=== PATIENT | male | born 1955 | race Caucasian/White ===

== ENCOUNTER 2019-12-24 19:23 | Observation (INO) | payer OTHER, SELFPAY ==
[2019-12-24 19:23] VITALS: BP 185/97; PULSE 85; RESP 18; TEMP 36.6; O2SAT 97; BMI 31.8
--- NOTE | 2019-12-24 19:46 | EKG12_ITS ---
Test Reason : NEURO Blood Pressure : / mmHG Vent. Rate : 079 BPM Atrial Rate : 079 BPM P-R Int : 136 ms QRS Dur : 086 ms QT Int : 380 ms P-R-T Axes : 045 -23 019 degrees QTc Int : 435 ms Normal sinus rhythm Normal ECG Confirmed by JEANETTE STODDARD, NOE ([id number]), online editor MARQUIS PEREZ ([id number]) on 12/28/2019 2:21:44 PM Referred By: DUSTIN Confirmed By:HERLINDA REID MD
--- NOTE | 2019-12-24 19:49 | ED.DCSUM_ITS ---
History of Present Illness Chief Complaint: Neuro S/Sx Informant: Patient, Significant Other Onset: Hours - 1-2; last seen normal 1809 Context: - - unsure Quality and Location: - - confused. Negative for: Right Facial Droop, Left Facial Droop, Right Face Paresthesia, Left Face Parasthesia, Right Arm Parasthesia, Left Arm Parasthesia, Right Leg Parasthesia, Left Leg Parasthesia, Right Arm Weakness, Left Arm Weakness, Right Leg Weakness, Left Leg Weakness, Slurred Speech, Expressive Aphasia, Receptive Aphasia, Difficulty with Ambulation Current Severity: Gone Maximum Severity: Moderate Worsened by: nothing in particular Relieved by: nothing in particular Associated Symptoms: Negative for: Headache, Nausea, Vomiting, Chest Pain Narrative: Patient was on a treadmill and then afterwards went to get a shower, states he took an unusual amount of time because so she went to check on him and he was standing in the doorway after he got a shower, looking at his watch and disoriented and saying that he could not figure it out. Patient admits that he does have a new watch but states that something felt wrong. He had no trouble speaking or understanding others. Denies any lateralizing symptoms neurologically or headache or chest discomfort or any other physical symptoms. states other than what he was saying, she cannot tell physically that anything was wrong. Patient states he is amnestic to some events, and feels fine now. He is on Xarelto because of a history of a saddle pulmonary embolus that led to the diagnosis of protein C deficiency. No recent injury. - Past Medical History (1) Protein C deficiency Status: Chronic (2) Bilateral pulmonary embolism Status: Chronic Comment: on xarelto Past Medical History - Allergies and Home Meds Allergies/Adverse Reactions: Allergies No Known Allergies Allergy (Verified 12/24/19 19:26) Primary Care Physician: Jimmy Rocha MD [Primary Care Provider] - Lives: Spouse/ Significant Other Smoking Status: Never smoker - Family History Maternal Family History: Reports: Clotting Disorder Review of Systems General: Denies: Chills, Fever, Sweats Eyes: Denies: Visual changes - bilaterally, Diplopia ENT: Denies: Rhinorrhea, Sore throat Cardiovascular: Denies: Chest pain, Palpitations Respiratory: Denies: Dyspnea, Cough, Dyspnea on exertion Gastrointestinal: Denies: Abdominal pain, Nausea, Vomiting, Diarrhea, Melena, Hematochezia Genitourinary: Denies: Dysuria, Hematuria, Frequency Musculoskeletal: Denies: Back pain, Extremity Pain Skin: Denies: Rash, Wounds Neurological: Reports: - - confusion transiently. Denies: Headache, Weakness, Numbness STROKE Vital Signs/Narrative: Vital Signs Temp Pulse Resp BP Pulse Ox 12/24/19 19:23 97.9 F 85 18 185/97 H 97 Inital Vital Signs reviewed: Yes - NIHSS Initial 1a Level of Consciousness: 0 1b LOC Questions (Score 2 if aphasic/stupor): 0 1c LOC Commands (Only score 1st attempt): 0 2 Best Gaze (If aphasic, use reflexive mvmts.): 0 3 Visual: 0 4 Facial Palsy: 0 5 Motor Arm Right (UN = amputation/fusion): 0 5 Motor Arm Left: 0 6 Motor Leg Right: 0 6 Motor Leg Left: 0 7 Limb ataxia (Only + if out of proportion): 0 8 Sensory (Aphasia/stupor=0 or 1, coma=2): 0 9 Best Language: 0 10 Dysarthria (mute, coma=2, intubated=UN): 0 11 Extinction and Inattention (only scored if +): 0 Total Score: 0 General: Well nourished, Well developed Head: Normocephalic, Atraumatic Eyes: Perrl, EOMI ENT: Moist mucous membranes, No rhinorrhea Neck: Supple, Nontender, - - No carotid bruits Cardiovascular: Regular rate, Regular rhythm, No murmurs Respiratory: No distress, CTA bilaterally, Chest nontender Abdomen: Soft, Nontender, Nondistended, Normal bowel sounds Back: Nontender, Normal Inspection Extremities: Nontender, No edema Skin: Normal color, No rash Neurological: Alert, Oriented x3, Cranial nerves II-XII grossly intact, Normal Strength, Normal Sensation, Normal DTR, Normal Gait Psychological: Normal affect, Normal Mood Diagnostic/Tx/Re-eval Clinical Impression(s) from Imaging Studies Brain CT 12/24/19 19:49 IMPRESSION: No evidence of acute intracranial bleed, mass or ischemia. Electronically Signed: Fausto Davis DO at 20:41 EST , Service support , Head/Neck CTA 12/24/19 21:04 IMPRESSION: No evidence of significant steno-occlusive disease or aneurysm. Electronically Signed: Fausto DavisDO at 22:02 EST , Service support , Laboratory Results 12/24/19 12/24/19 12/24/19 19:37 19:37 20:02 WBC 6.5 RBC 5.18 Hgb 15.3 Hct 45.6 MCV 88.0 MCH 29.5 MCHC 33.6 RDW Std Deviation 40.7 RDW Coeff of Paulina 12.6 Plt Count 177 MPV 10.0 Immature Gran % (Auto) 0.300 Neut % (Auto) 59.5 Lymph % (Auto) 28.2 [place] % (Auto) 10.5 H Eos % (Auto) 0.9 Baso % (Auto) 0.6 Absolute Neuts (auto) 3.9 Absolute Lymphs (auto) 1.83 Nucleated RBC % 0 Sodium 141 Potassium 3.8 Chloride 107 Carbon Dioxide 31.0 Anion Gap 3 L BUN 20 H Creatinine 1.04 Estim Creat Clear Calc 60.88 Est GFR (MDRD) Af Amer 93 Est GFR (MDRD) Non-Af 77 BUN/Creatinine Ratio 19.2 Glucose 103 Calcium 8.8 Troponin I < 0.015 Urine Color Straw Urine Clarity Clear Urine pH 6.5 Ur Specific [place] 1.010 Urine Protein Negative Urine Glucose (UA) Normal Urine Ketones Negative Urine Occult Blood Negative Urine Nitrite Negative Urine Bilirubin Negative Urine Urobilinogen Normal Ur Leukocyte Esterase Negative Urine RBC 0 SEEN Urine WBC 0-5 SEEN Ur Squamous Epith Cells 0 SEEN Urine Bacteria 0 SEEN Urine Mucus 0 SEEN - Rhythm Strip Rhythm Strip: Sinus Rhythm Rate: 79 Ectopy: None - EKG Initial EKG Interpretation: Sinus Rhythm, No Acute Injury Pattern - Normal EKG - Medical Decision Making Stroke Team Activated: No - NIHSS 0, asymptomatic Was Patient considered for Endovascular Intervention?: No - Negative CTA The possibility of a TIA was entertained, however I think that is much less likely since patient had no lateralizing symptoms. I discussed with neurology at 2330, when [facility] neurology consulted on the patient. Also discussed with the physician afterwards. His work-up was negative. His blood pressure continues to remain elevated although it has waxed and waned, anywhere from 139 systolic to 185. Neurology recommends admission with EEG and MRI with and without contrast, including MRV and hemosiderin windows if available. Patient is clinically and hemodynamically stable, will admit to PCU. Discussed with hospitalist. ED Disposition - Plan for ED Patient: Disposition: Acute Care Hospital [facility] Diagnosis: Transient confusion Referrals: Jimmy Rocha MD [Primary Care Provider] -
--- NOTE | 2019-12-24 19:49 | CT_ITS ---
STUDY: CT BRAIN WITHOUT CONTRAST REASON FOR EXAM: Male, 64 years old. CONFUSION TONIGHT WHILE GETTING READY FOR BED, HX PE IN PAST RADIATION DOSAGE (If Supplied By Facility): CTDIvol = ( 44.99 ) mGy, DLP = ( 846.73 ) mGycm TECHNIQUE: Transaxial CT imaging of the brain was performed without administration of intravenous contrast material. Individualized dose optimization techniques were used for this CT. COMPARISON: No relevant priors. FINDINGS: Normal soft tissue structures. Normal calvarium. Normal size ventricles and extra-axial spaces for the patient''s age. Normal white matter tracts of the cerebral hemispheres. Normal basal ganglia and thalami. Normal brainstem. Normal cerebellum. There is no intracranial hemorrhage. There are no findings of an acute ischemic infarction. Normal visualized paranasal sinuses. CT/Brain/Head without Contrast IMPRESSION: No evidence of acute intracranial bleed, mass or ischemia. Electronically Signed: Fausto Davis DO at 20:41 EST , Service support ,
[2019-12-24 20:02] LABS: Absolute Lymphocyte Count 1.83 X10^3/uL (0.83-4.51); Absolute Neutrophil Count 3.9 X10^3/uL (2.0-7.7); Basophil# 0.04 X10^3/uL; Basophil% 0.6 % (0-1); Eosinophil# 0.06 X10^3/uL; Eosinophils% 0.9 % (0-5); Hematocrit 45.6 % (40-54); Hemoglobin 15.3 g/dL (13.0-16.5); Lymphocyte # 1.83 X10^3/ul (4.0); Lymphocyte % 28.2 % (19-41); Mean Corp Hgb Conc 33.6 g/dL (32-36); Mean Corpuscular Hgb 29.5 pg (27.0-32.0); Monocyte# 0.68 X10^3/uL; Monocyte% 10.5 % (0-10); NRBC Flagged by Analyzer 0 % (0-5); Neutrophil # 3.85 X10^3/uL (2.7-7.7); Neutrophil % 59.5 % (47-70); Platelet Count 177 K/mm3 (150-450); RBC Distribution Width CV 12.6 % (11.6-14.6); RBC Distribution Width SD 40.7 fl (35.1-43.9); Red Blood Count 5.18 M/mm3 (4.6-6.2); White Blood Count 6.5 K/mm3 (4.4-11.0)
[2019-12-24 20:05] VITALS: BP 147/93; PULSE 80; RESP 22; O2SAT 95
[2019-12-24 20:06] VITALS: BMI 31.8
[2019-12-24 20:11] LABS: Bacteria 0 SEEN /hpf (None Seen); Mucous, Urine 0 SEEN /hpf (<or=2+); Red Blood Cells-Urine 0 SEEN /hpf (0-5); Squamous Epithelial Cells - UA 0 SEEN /hpf (0-5)
[2019-12-24 20:23] LABS: Color, Urine Straw (Yellow); Glucose, Dipstick Normal (Normal); Ketone-Dipstick Negative (Negative); Leukocyte Esterase-Dipstick Negative /ul (Negative); Nitrite-Dipstick Negative (Negative); Occult Blood-Urine Negative /ul (Negative); Protein-Dipstick Negative (Negative); Urine Bilirubin Dipstick Negative (Negative); Urine Clarity Clear (Clear); Urine Urobilinogen Normal (Normal); Urine pH 6.5 (5.0 - 8.0)
[2019-12-24 20:30] LABS: Anion Gap 3 (5-15); BUN 20 mg/dL (7-18); BUN/Creat Ratio 19.2 RATIO (10-20); Calcium,Total 8.8 mg/dL (8.5-10.1); Chloride 107 mmol/L (98-107); Creatinine, Serum 1.04 mg/dL (0.70-1.30); EST Glomerular Filtration Rate 77 mL/min (>60); Est Glom Filt Rate - Afr Amer 93 mL/min (>60); Estimated Creatinine Clearance 60.88 ml/min; Glucose 103 mg/dL (74-106); Potassium 3.8 mmol/L (3.5-5.1); Sodium Level 141 mmol/L (136-145)
[2019-12-24 20:51] LABS: White Blood Cells 0-5 SEEN /hpf (0-5)
[2019-12-24 21:00] VITALS: BP 154/96; PULSE 82; RESP 18; O2SAT 96
--- NOTE | 2019-12-24 21:04 | CT_ITS ---
STUDY: CTA HEAD AND NECK WITH CONTRAST REASON FOR EXAM: Male, 64 years old. CONFUSION WHILE GETTING READY FOR BED, CONCERN FOR TIA, HX PULMONARY EMBOLISM WITH CURRENT BLOOD THINNER USAGE RADIATION DOSAGE (If Supplied By Facility): CTDIvol = ( 19.39 ) mGy, DLP = ( 709.16 ) mGycm TECHNIQUE: CT angiography was performed with a multi-detector CT scanner. Data acquisition was obtained from the skull base through the vertex following intravenous administration of 100 ML ISOVUE 370. MIP images were reconstructed from the axial data set. Post-processing of the angiographic images was performed, with multiplanar reformation and 3D reconstruction. Individualized dose optimization techniques were used for this CT. COMPARISON: No relevant priors. FINDINGS: Normal bilateral petrous carotid arteries. Normal right cavernous carotid artery with a normal supraclinoid bifurcation. Normal left cavernous carotid artery with a normal supraclinoid bifurcation. There is hypoplastic development of the right A1 segment of the anterior cerebral arteries with an atretic but intact artery. Normal left A1 segments of the anterior cerebral artery. Normal intact anterior communicating artery (ACOM). Normal bilateral A2 segments of the anterior cerebral arteries. Normal right M1 and M2 segments of the middle cerebral arteries, with a normal M1 bifurcation. Normal left M1 and M2 segments of the middle cerebral arteries, with a normal M1 bifurcation. There is a persistent origin of the right posterior cerebral artery with absence of the posterior communicating artery (PCOM). There is a persistent origin of the left posterior cerebral artery with absence of the posterior communicating artery (PCOM). Normal bilateral vertebral arteries. Normal basilar artery with a normal basilar bifurcation. The visualized bilateral superior cerebellar (SCA) arteries are normal. Normal bilateral P1, P2 and visualized P3 segments of the posterior cerebral arteries. There is no demonstrated aneurysm of the [place]. There is no demonstrated abnormality of the visualized brain. AORTIC ARCH: Normal visualized aortic arch. Normal origins of the brachiocephalic, left common carotid, and left subclavian arteries. RIGHT CAROTID ARTERIES: Normal right common carotid artery (CCA). Normal right common carotid bulb. Normal origin of the right internal carotid (ICA) artery without a hemodynamically significant stenosis. Normal visualized cervical portion of the right internal carotid artery. Normal origin of the right external carotid artery (ECA). LEFT CAROTID ARTERIES: Normal left common carotid artery (CCA). Normal left common carotid bulb. Normal origin of the left internal carotid (ICA) artery without a hemodynamically significant stenosis. Normal visualized cervical portion of the left internal carotid artery. Normal origin of the left external carotid artery (ECA). VERTEBRAL ARTERIES: Normal bilateral vertebral arteries. CT/CTA Head AND Neck W/ Contrast IMPRESSION: No evidence of significant steno-occlusive disease or aneurysm. Electronically Signed: Fausto Davis DO at 22:02 EST , Service support ,
[2019-12-24 22:00] VITALS: BP 143/89; PULSE 74; RESP 15; O2SAT 95
[2019-12-24 23:00] VITALS: BP 141/85; PULSE 79; RESP 16; O2SAT 95
--- NOTE | 2019-12-24 23:54 | HP.PCM_ITS ---
Problem List (1) Protein C deficiency Status: Chronic (2) Transient confusion Status: Acute (3) Bilateral pulmonary embolism Status: Chronic Comment: on xarelto History of Present Illness Date of Admission: 12/24/19 Chief Complaint: confusion The patient is a 64 year old M with a significant history of restless leg syndrome; protein C deficiency with saddle embolus on Xarelto who presented to the emergency department with confusion. Patient and his returned from the gym. His took her shower first after which patient also went to take her shower. Patient took a long time before returning from the shower. And while holding his clothes after the shower he appeared confused and did not know how to operate his new apple watch. Patient then had his supper after which he helped his with the dishes. However patient forgot that he helped his with the dishes. At the emergency department patient confusion had resolved. A CT of his head and CTA of his head and neck was unremarkable. ED doctor discussed with [facility] neurologist who gave several recommendations. Past Medical History Past Medical History (Chronic Problems): Chronic Problems Protein C deficiency (Chronic) Bilateral pulmonary embolism (Chronic) on xarelto Allergies No Known Allergies Allergy (Verified 12/24/19 19:26) Home Medications: Ambulatory Orders Medication Instructions Recorded Ropinirole HCl [Requip] 0.5 mg PO QHS 05/20/14 Omeprazole [Prilosec] 20 mg PO DAILY 04/30/15 Rivaroxaban [Xarelto] 20 mg PO DAILY 04/30/15 Acetaminophen [Tylenol Extra 1,000 mg PO QHS 12/24/19 Strength] Ascorbic Acid [Vitamin C] 500 mg PO DAILY 12/24/19 Cholecalciferol (Vitamin D3) 2,000 unit PO DAILY 12/24/19 [Vitamin D3] Doxylamine Succinate [Sleep Aid] 12.5 mg PO QHS 12/24/19 Gluc Dietrich/Chondro Dietrich A/Vit C/Mn 1 ea PO DAILY 12/24/19 [Glucosamine Chondroitin Tab] Krill Oil 750 mg PO DAILY 12/24/19 L.acidoph,Paracasei, B.lactis 1 ea PO QHS 12/24/19 [Probiotic] Multivit-Mins/Iron/Folic/Lycop 1 ea PO DAILY 12/24/19 [Centrum Men's Tablet] Surgical History: no surgical history Lives: Spouse/ Significant Other Smoking Status: Never smoker - *Family History Maternal History Items: Clotting Disorder, - - Glaucoma Paternal History Items: Diabetes, Heart Disease - His father had a CABG Review of Systems Constitutional: Denies: Chills, Fever, Weight Change HEENT: Denies: Head Aches, Sinus Congestion, Sinus Drainage Cardiovascular: Denies: Chest Pain, Palpitations Respiratory: Denies: Cough, Shortness of breath at rest, Sputum production Gastrointestinal: Denies: Abdominal Pain, Nausea, Vomiting Genitourinary: Denies: Dysuria Musculoskeletal: Denies: Joint Pain, Joint Tenderness Skin: Denies: Rash, Wounds Neurological: Reports: Confusion. Denies: Focal weakness, Numbness, Tingling Psychiatric: Denies: Anxiety, Depression, Homicidal Ideations, Suicidal Ideations Hematologic/ Lymphatic: Denies: Easy Bruising, Easy Bleeding VTE Information - Inpt Only VTE Present on Admission: No VTE Mechan Device Prophylaxis: None VTE Pharm Prophylaxis ordered?: No Reason prophylaxis not ordered:: Treatment Not Indicated - Continue Xarelto for history of Saddle embolism Patient Problems: Active and Suspected Problems Transient confusion (Acute) - Physical Exam Vitals/I&O's: Vital Signs Temp Pulse Resp BP Pulse Ox 97.9 F 79 16 141/85 H 95 12/24/19 19:23 12/24/19 23:00 12/24/19 23:00 12/24/19 23:00 12/24/19 23:00 Oxygen Delivery Method Room Air Weight: 84.1 kg Body Mass Index (BMI) 31.8 General: Alert, Oriented x3, Cooperative HEENT: Atraumatic, PERRLA, EOMI, Normocephalic Neck: Supple, No JVD, Negative Carotid Bruits Lungs: Clear to auscultation, Normal air movement Cardiovascular: Regular rate, No murmurs Abdomen: Bowel Sounds Present, Soft, Non Tender Extremities: No edema, Capillary Refill Less than 3 Seconds Skin: No rashes, No breakdown Musculoskeletal: No Tenderness to Palpation of Joints or Extremities Neurological: Cranial nerves II-XII grossly intact, Deep Tendon Reflexes 2+/4 and Symmetrical, Motor Exam 5/5 strength throughout, Muscle tone normal, Sensory exam intact to light touch and pain, Coordination normal Psych/Mental Status: Normal Affect, Appropriate Laboratory Results 12/24/19 19:37: WBC 6.5, RBC 5.18, Hgb 15.3, Hct 45.6, MCV 88.0, MCH 29.5, MCHC 33.6, RDW Std Deviation 40.7, RDW Coeff of Paulina 12.6, Plt Count 177, MPV 10.0, Immature Gran % (Auto) 0.300, Neut % (Auto) 59.5, Lymph % (Auto) 28.2, [place] % (Auto) 10.5 H, Eos % (Auto) 0.9, Baso % (Auto) 0.6, Absolute Neuts (auto) 3.9, Absolute Lymphs (auto) 1.83, Nucleated RBC % 0 12/24/19 19:37: Sodium 141, Potassium 3.8, Chloride 107, Carbon Dioxide 31.0, Anion Gap 3 L, BUN 20 H, Creatinine 1.04, Estim Creat Clear Calc 60.88, Est GFR (MDRD) Af Amer 93, Est GFR (MDRD) Non-Af 77, BUN/Creatinine Ratio 19.2, Glucose 103, Calcium 8.8, Troponin I < 0.015 12/24/19 20:02: Urine Color Straw, Urine Clarity Clear, Urine pH 6.5, Ur Specific [place] 1.010, Urine Protein Negative, Urine Glucose (UA) Normal, Urine Ketones Negative, Urine Occult Blood Negative, Urine Nitrite Negative, Urine Bilirubin Negative, Urine Urobilinogen Normal, Ur Leukocyte Esterase Negative, Urine RBC 0 SEEN, Urine WBC 0-5 SEEN, Ur Squamous Epith Cells 0 SEEN, Urine Bacteria 0 SEEN, Urine Mucus 0 SEEN Current Medications Sodium Chloride 1,000 ml/ N/A 1,000 mls @ 84.1 mls/hr IV .[id number] [facility] Stop: 12/25/19 21:06 Last Admin: 12/24/19 21:36 Dose: 1 ml/kg/hr, 84.1 mls/hr Documented by: Assessment/Plan All Active Problems Transient confusion (Acute) The patient is a 64 year old M with a significant history of restless leg syndrome; protein C deficiency with saddle embolus on Xarelto who presented to the emergency department with confusion and amnesia consistent with acute encephalopathy. Acute encephalopathy NINDS NIH Scale was 0 CT of the head was unremarkable. CTA head and neck unremarkable. -Check Hba1c, Lipid level Physical therapy, occupational therapy and speech therapy to work with patient. N.p.o. until bedside swallow eval. Daily aspirin. High intensity statin ordered Permissive hypertension. Control blood pressure with labetalol for systolic blood pressure of more than 220 or diastolic blood pressure of more than 120. Per [facility] neurology recommendation MRI of the brain with and without gadolinium (with hemosiderin sequencing) and MRV in addition to EEG ordered. Echocardiogram ordered. History of saddle pulmonary embolism Reportedly patient has saddle pulmonary embolism after which follow-up work-up showed protein C deficiency. Xarelto continued. Elevated blood pressure diagnosis of hypertension Trend. Permissive hypertension as above. DVT prophylaxis Not indicated since patient is on Xarelto for history of PE. Code Visit OBSV E&M: 33911 Initial observation care L2
[2019-12-25] VITALS (11 sets, daily range): BP systolic 123–164; BP diastolic 69–89; PULSE 53–79; RESP 14–16; TEMP 36.7–36.9; O2SAT 92–98; BMI 31.2
--- NOTE | 2019-12-25 01:23 | ECHOCS_ITS ---
Reason For Study: TIA, CVA Procedure This was a 2D Doppler, Color Flow transthoracic echocardiogram. Contrast injection was performed. The study was technically difficult. Exam performed portable in patient room. Left Ventricle Normal LV size. The estimated ejection fraction is 65 %. No evidence for diastolic dysfunction. No regional wall motion abnormalities noted. Right Ventricle Normal RV size. Normal systolic function. Atria The left atrium is mildly enlarged. Normal right atrium. No doppler evidence for ASD. Mitral Valve There is no mitral valve stenosis. No mitral valve insufficiency. Tricuspid Valve There is no tricuspid stenosis. Trivial tricuspid valve insufficiency. Unable to estimate RV systolic pressure due to insufficient tricuspid regurgitant envelope. Aortic Valve Trisinus/trileaflet aortic valve. There is no aortic stenosis. No aortic valve insufficiency. Pulmonic Valve There is no pulmonic valvular stenosis. No pulmonic valve insufficiency. Great Vessels Normal aortic root. Pericardium/Pleural No pericardial effusion. Medication Diluted definity 3.0ml given slow IV push to enhance endocardial definition. Performed a rapid injection of agitated mix of 9 cc saline and 1cc air to assess for atrial septal defect. MMode/2D Measurements & Calculations LVIDd: 5.3 cm IVSd: 1.3 cm Ao root diam: 3.4 cm LVIDs: 3.3 cm LVPWd: 1.3 cm RVDd: 3.6 cm FS: 39.0 % LAV(MOD-bp): 54.8 ml LA A4 area: 18.6 cm2 LA dimension(2D): 3.9 cm LAV(MOD-bp) Indexed: 29.2 ml/m2 LAV(MOD-sp2): 56.8 ml LAV(MOD-sp4): 48.3 ml RA A4 area: 12.4 cm2 Time Measurements MV dec time: 0.20 sec Doppler Measurements & Calculations MV E max rocky: 70.6 cm/sec Lat Peak E' Rocky: 7.9 cm/sec Med Peak E' Rocky: 5.7 cm/sec MV A max rocky: 64.8 cm/sec E/E' lat: 8.9 E/E' med: 12.3 MV E/A: 1.1 Ao V2 max: 124.8 cm/sec LV V1 max: 125.2 cm/sec Ao max P.2 mmHg LV V1 max P.3 mmHg Interpretation Summary The study was technically difficult. Contrast injection was performed. The estimated ejection fraction is 65 %. No evidence for diastolic dysfunction. The left atrium is mildly enlarged. Trivial tricuspid valve insufficiency. The study was technically difficult. Contrast injection was performed. Ordering Physician: Pa Masters Referring Physician: Jimmy Rocha M.D. Performed By: Marina Garcia, JAYNE, RVT
--- NOTE | 2019-12-25 01:23 | MRI_ITS ---
STUDY: MRI BRAIN WITH AND WITHOUT CONTRAST REASON FOR EXAM: Male, 64 years old. CVA. Episode of AMS. Currently being treated for a PE. TECHNIQUE: Standardized multiplanar fat and water weighted pulse sequences were obtained. 15ml DOtarem IV was administered for the contrast portion of the examination. COMPARISON: CT 12/24/2019 FINDINGS: Normal size of the ventricles and extra-axial spaces for the patient''s age. Normal white matter tracts of the supratentorial brain. There is no evidence for recent intracranial ischemia or other cause of cytotoxic edema on diffusion weighted imaging (DWI). Normal T2* images of the brain without demonstrated susceptibility artifact. There is no demonstrated hemosiderin stain. Normal bilateral basal ganglia. Normal thalami. There is no extra-axial fluid accumulation. Normal flow voids within the major intracranial circulation suggesting patency by spin echo criteria. Normal venous enhancement. There is no enhancing intra-axial or extra-axial abnormality. Normal sella turcica, pituitary gland, infundibular stalk, optic chiasm and hypothalamus. Normal tectal plate and pineal gland. Normal midbrain, francoise and medulla. Normal cerebellum. Normal basal cisterns. Normal bilateral temporal bones. Normal bilateral internal auditory canals. No demonstrated orbital abnormality, within the constraints of a routine brain study. Normal visualized paranasal sinuses. Normal calvarium and skull base. Normal visualized soft tissue structures. Normal visualized upper cervical spine. MRI/Brain W/WO Contrast IMPRESSION: Normal unenhanced and enhanced MRI of the brain. Electronically Signed: Cordell Cronin MD at 15:41 EST Tel , Service support ,
--- NOTE | 2019-12-25 01:23 | MRI_ITS ---
STUDY: EXAMINATION - MRV BRAIN WITHOUT CONTRAST REASON FOR EXAM: Male, 64 years old. CVA. Episode of AMS. Currently being treated for a PE. TECHNIQUE: 3D [id number] (TOF) imaging was performed in a 1.5 hellen MRI scanner. COMPARISON: None. FINDINGS: Normal flow within the superior sagittal sinus. Normal flow within the superficial cortical veins. Normal flow within the paired internal cerebral veins, vein of Roger and straight sinus. Normal flow within the bilateral transverse and sigmoid sinuses. Normal flow within the bilateral jugular bulbs. MRI/MRV Head Without Contrast IMPRESSION: Normal unenhanced MRV of the brain. Electronically Signed: Cordell Cronin MD at 15:43 EST Tel , Service support ,
[2019-12-25 05:26] LABS: Absolute Lymphocyte Count 1.55 X10^3/uL (0.83-4.51); Absolute Neutrophil Count 4.3 X10^3/uL (2.0-7.7); Basophil# 0.04 X10^3/uL; Basophil% 0.6 % (0-1); Eosinophil# 0.03 X10^3/uL; Eosinophils% 0.4 % (0-5); Hematocrit 43.2 % (40-54); Hemoglobin 14.6 g/dL (13.0-16.5); Lymphocyte # 1.55 X10^3/ul (4.0); Mean Corp Hgb Conc 33.8 g/dL (32-36); Mean Corpuscular Hgb 29.6 pg (27.0-32.0); Mean Corpuscular Volume 87.4 fL (80-94); Mean Platelet Vol. 10.3 fl (6.2-12.0); Monocyte# 0.82 X10^3/uL; Monocyte% 12.1 % (0-10); NRBC Flagged by Analyzer 0 % (0-5); Neutrophil # 4.29 X10^3/uL (2.7-7.7); Neutrophil % 63.6 % (47-70); Platelet Count 173 K/mm3 (150-450); RBC Distribution Width CV 12.8 % (11.6-14.6); RBC Distribution Width SD 40.6 fl (35.1-43.9); Red Blood Count 4.94 M/mm3 (4.6-6.2); White Blood Count 6.8 K/mm3 (4.4-11.0)
[2019-12-25 05:49] LABS: Anion Gap 6 (5-15); BUN 16 mg/dL (7-18); BUN/Creat Ratio 19.5 RATIO (10-20); Calcium,Total 8.5 mg/dL (8.5-10.1); Chloride 109 mmol/L (98-107); Cholesterol 179 mg/dL (200); Creatinine, Serum 0.82 mg/dL (0.70-1.30); EST Glomerular Filtration Rate 101 mL/min (>60); Est Glom Filt Rate - Afr Amer 122 mL/min (>60); Estimated Creatinine Clearance 77.21 ml/min; Glucose 95 mg/dL (74-106); High Density Lipoprotein 43 mg/dL; Potassium 3.7 mmol/L (3.5-5.1); Sodium Level 142 mmol/L (136-145); Triglycerides 128 mg/dL; Very Low Density Lipoprotein 26 mg/dL (5-40)
[2019-12-25 08:27] LABS: Hemoglobin A1c 5.6 % (4.2-6.3)
--- NOTE | 2019-12-25 08:58 | NURSING ---
VSA and NIHSS late d/t patient receiving echocardiogram.
[2019-12-25] MEDS: Pantoprazole Sodium 20 MG Tablet PO (10:23)
[2019-12-25] MEDS: Aspirin 81 MG TAB.CHEW PO (10:23)
[2019-12-25] MEDS: Rivaroxaban 20 MG Tablet PO (10:54)
--- NOTE | 2019-12-25 12:59 | PN_ITS ---
Patient Problems: Active and Suspected Problems Transient confusion (Acute) Reason for Visit: confusion Subjective: No new issues. No further confusion. Vitals/I&O's: Vital Signs Temp Pulse Resp BP Pulse Ox 36.9 C 71 16 159/88 H 94 12/25/19 10:05 12/25/19 11:06 12/25/19 10:05 12/25/19 10:05 12/25/19 10:05 Oxygen Delivery Method Room Air Weight: 82.5 kg Body Mass Index (BMI) 31.2 Intake and Output for Last 24 Hours 12/23/19 12/24/19 12/25/19 23:59 23:59 23:59 Intake Total 1599 / 1599 Balance 1599 / 1599 General: Alert, No apparent distress HEENT: Atraumatic, Normocephalic Oral: Moist Mucosa, No Gingival or Mucosal Lesions/ Ulcerations Neck: No Nodes, Trachea Midline Lungs: Clear to auscultation, Normal air movement, No rhonchi, No wheeze, No rales Cardiovascular: Regular rate, Regular Rhythm, Normal S1, Normal S2, No murmurs Abdomen: Bowel Sounds Present, Soft, Non Tender, Non-Distended, No Hepato- splenomegaly Extremities: No edema, No Calf Tenderness Skin: No rashes, No breakdown Musculoskeletal: No Tenderness to Palpation of Joints or Extremities, No Muscle Wasting Neurological: Cranial nerves II-XII grossly intact, Neuro grossly intact, Motor Exam 5/5 strength throughout Laboratory Results 12/24/19 19:37: WBC 6.5, RBC 5.18, Hgb 15.3, Hct 45.6, MCV 88.0, MCH 29.5, MCHC 33.6, RDW Std Deviation 40.7, RDW Coeff of Paulina 12.6, Plt Count 177, MPV 10.0, Immature Gran % (Auto) 0.300, Neut % (Auto) 59.5, Lymph % (Auto) 28.2, [place] % (Auto) 10.5 H, Eos % (Auto) 0.9, Baso % (Auto) 0.6, Absolute Neuts (auto) 3.9, Absolute Lymphs (auto) 1.83, Nucleated RBC % 0 12/24/19 19:37: Sodium 141, Potassium 3.8, Chloride 107, Carbon Dioxide 31.0, Anion Gap 3 L, BUN 20 H, Creatinine 1.04, Estim Creat Clear Calc 60.88, Est GFR (MDRD) Af Amer 93, Est GFR (MDRD) Non-Af 77, BUN/Creatinine Ratio 19.2, Glucose 103, Calcium 8.8, Troponin I < 0.015 12/24/19 20:02: Urine Color Straw, Urine Clarity Clear, Urine pH 6.5, Ur Specific [place] 1.010, Urine Protein Negative, Urine Glucose (UA) Normal, Urine Ketones Negative, Urine Occult Blood Negative, Urine Nitrite Negative, Urine Bilirubin Negative, Urine Urobilinogen Normal, Ur Leukocyte Esterase Negative, Urine RBC 0 SEEN, Urine WBC 0-5 SEEN, Ur Squamous Epith Cells 0 SEEN, Urine Bacteria 0 SEEN, Urine Mucus 0 SEEN 12/25/19 02:00: Troponin I < 0.015 12/25/19 04:58: WBC 6.8, RBC 4.94, Hgb 14.6, Hct 43.2, MCV 87.4, MCH 29.6, MCHC 33.8, RDW Std Deviation 40.6, RDW Coeff of Paulina 12.8, Plt Count 173, MPV 10.3, Immature Gran % (Auto) 0.300, Neut % (Auto) 63.6, Lymph % (Auto) 23.0, [place] % (Auto) 12.1 H, Eos % (Auto) 0.4, Baso % (Auto) 0.6, Absolute Neuts (auto) 4.3, Absolute Lymphs (auto) 1.55, Nucleated RBC % 0 12/25/19 04:58: Hemoglobin A1c 5.6 12/25/19 04:58: Sodium 142, Potassium 3.7, Chloride 109 H, Carbon Dioxide 27.0, Anion Gap 6, BUN 16, Creatinine 0.82, Estim Creat Clear Calc 77.21, Est GFR (MDRD) Af Amer 122, Est GFR (MDRD) Non-Af 101, BUN/Creatinine Ratio 19.5, Glucose 95, Calcium 8.5, Troponin I < 0.015, Triglycerides 128, Cholesterol 179, LDL Cholesterol 110, VLDL Cholesterol 26, HDL Cholesterol 43 12/25/19 08:02: Troponin I < 0.015 Current Medications Acetaminophen (Tylenol) 1,000 mg PO QHS [facility] Aspirin (Aspirin, Baby) 81 mg PO DAILY@0800 [facility] Last Admin: 12/25/19 10:23 Dose: 81 mg Documented by: Atorvastatin Calcium (Lipitor) 80 mg PO QHS [facility] Doxylamine Succinate (Sleep Aid) 12.5 mg PO QHS [facility] Glucagon () 1 mg IM .X1 PRN PRN Reason: Hypoglycemia Dextrose (Dextrose 10%-Water) 250 mls @ 999 mls/hr IV .Q16M PRN; Protocol PRN Reason: HYPOGLYCEMIA Labetalol HCl (Trandate) 10 mg IV Q10M PRN PRN Reason: MAINTAIN BP < 220/120 Stop: 12/26/19 01:24 Ondansetron HCl (Zofran) 4 mg IV Q8H PRN PRN PRN Reason: NAUSEA/VOMITING Pantoprazole Sodium (Protonix) 20 mg PO DAILY [facility] Last Admin: 12/25/19 10:23 Dose: 20 mg Documented by: Pramipexole Dihydrochloride (Mirapex) 0.25 mg PO QHS [facility] Rivaroxaban (Xarelto) 20 mg PO DAILY@0800 [facility] Last Admin: 12/25/19 10:54 Dose: 20 mg Documented by: Sodium Chloride () 10 - 40 ml IV UD PRN PRN Reason: SALINE FLUSH STROKE Vital Signs/Narrative: Vital Signs Temp Pulse Resp BP Pulse Ox 12/25/19 11:06 71 12/25/19 10:05 36.9 C 71 16 159/88 H 94 Medical Necessity - Tobacco Use Smoking Status: Never smoker Assessment/Plan All Active Problems Transient confusion (Acute) 1. Transient Global Amnesia * CVA v szr, v other * work up underway with MRI, MRV, EEG, echo * based on those results will reconsult neurology 2. VTE: continue rivaroxaban Code Visit OBSV E&M: 02126 Subsequent observation care L3
--- NOTE | 2019-12-25 13:23 | CASEMGMT ---
Social Work SW met with pt and completed PHQ 9 depression screen as pt presented with stroke like symptoms. Score of 0 indicating no depression. Pt and educated on possibility of depression following stroke. No further needs at this time. CARA Pedersen
--- NOTE | 2019-12-25 16:53 | DS.PCM_ITS ---
Discharge Date and Diagnosis - Problem List Patient Problems: Active and Suspected Problems Transient confusion (Acute) Date of Admission: 12/24/19 Date of Discharge: 12/25/19 - Primary Discharge Diagnosis Active and Suspected Problems Transiet Global Amnesia - Secondary Discharge Diagnosis Chronic Problems Protein C deficiency (Chronic) Bilateral pulmonary embolism (Chronic) on [facility] Course and Treatment Imaging Results: Clinical Impression(s) from Imaging Studies Brain CT 12/24/19 19:49 IMPRESSION: No evidence of acute intracranial bleed, mass or ischemia. Electronically Signed: Fausto Davis DO at 20:41 EST , Service support , Head/Neck CTA 12/24/19 21:04 IMPRESSION: No evidence of significant steno-occlusive disease or aneurysm. Electronically Signed: Fausto Davis DO at 22:02 EST , Service support , Brain MRI 12/25/19 01:23 IMPRESSION: Normal unenhanced MRV of the brain. Electronically Signed: Cordell Cronin MD at 15:43 EST Tel , Service support , Brain MRI 12/25/19 01:23 IMPRESSION: Normal unenhanced and enhanced MRI of the brain. Electronically Signed: Cordell Cronin MD at 15:41 EST Tel , Service support , [facility] Teleneurology Operations: None Procedures: 2-D Echocardiogram - results pending, Electroencephalogram Summary of Care Provided: The patient is a 64 year old M who was in his normal state of health and then went to workout and then went take shower afterwards at home. noted that he was in the shower longer than he typically would be. She went into the bathroom and patient was just standing there confused holding his close. He then functioned normally afterwards but had no recollection of that. Patient had an episode such as this so they were concerned and brought the patient to the emergency room. Patient had no focal deficits and underwent a neurologic work-up, including an MRI of the brain, MRV, EEG and 2D echocardiogram. 2D ech ocardiogram is still pending at this time but remainder of the work-up was negative. Is consults was placed to [facility] tele-neurology initially before the test and then subsequently thereafter, results of which are still pending. Based on those recommendations will follow-up. Patient advised to follow-up with neurology as outpatient. Patient is anticoagulated given his history of PE. Patient was found to have a protein C deficiency previously and follows with Dr. Palma as outpatient. MRI did not show any evidence of stroke. Working diagnoses thus far is transient global amnesia. Currently still awaiting further neurology input and recommendations. But if no additional recommendations for inpatient, patient will be discharged home. [] Patient Problems: Active and Suspected Problems Transient confusion (Acute) - Physical Exam Vitals/I&O's: Vital Signs Temp Pulse Resp BP Pulse Ox 36.8 C 65 16 149/86 H 93 12/25/19 13:50 12/25/19 15:27 12/25/19 13:50 12/25/19 13:50 12/25/19 13:50 Oxygen Delivery Method Room Air Weight: 82.5 kg Body Mass Index (BMI) 31.2 Intake and Output for Last 24 Hours 12/23/19 12/24/19 12/25/19 23:59 23:59 23:59 Intake Total 1600 / 1600 Balance 1600 / 1600 Laboratory Results 12/24/19 19:37: WBC 6.5, RBC 5.18, Hgb 15.3, Hct 45.6, MCV 88.0, MCH 29.5, MCHC 33.6, RDW Std Deviation 40.7, RDW Coeff of Paulina 12.6, Plt Count 177, MPV 10.0, Immature Gran % (Auto) 0.300, Neut % (Auto) 59.5, Lymph % (Auto) 28.2, [place] % (Auto) 10.5 H, Eos % (Auto) 0.9, Baso % (Auto) 0.6, Absolute Neuts (auto) 3.9, Absolute Lymphs (auto) 1.83, Nucleated RBC % 0 12/24/19 19:37: Sodium 141, Potassium 3.8, Chloride 107, Carbon Dioxide 31.0, Anion Gap 3 L, BUN 20 H, Creatinine 1.04, Estim Creat Clear Calc 60.88, Est GFR (MDRD) Af Amer 93, Est GFR (MDRD) Non-Af 77, BUN/Creatinine Ratio 19.2, Glucose 103, Calcium 8.8, Troponin I < 0.015 12/24/19 20:02: Urine Color Straw, Urine Clarity Clear, Urine pH 6.5, Ur Specific [place] 1.010, Urine Protein Negative, Urine Glucose (UA) Normal, Urine Ketones Negative, Urine Occult Blood Negative, Urine Nitrite Negative, Urine Bilirubin Negative, Urine Urobilinogen Normal, Ur Leukocyte Esterase Negative, Urine RBC 0 SEEN, Urine WBC 0-5 SEEN, Ur Squamous Epith Cells 0 SEEN, Urine Bacteria 0 SEEN, Urine Mucus 0 SEEN 12/25/19 02:00: Troponin I < 0.015 12/25/19 04:58: WBC 6.8, RBC 4.94, Hgb 14.6, Hct 43.2, MCV 87.4, MCH 29.6, MCHC 33.8, RDW Std Deviation 40.6, RDW Coeff of Paulina 12.8, Plt Count 173, MPV 10.3, Immature Gran % (Auto) 0.300, Neut % (Auto) 63.6, Lymph % (Auto) 23.0, [place] % (Auto) 12.1 H, Eos % (Auto) 0.4, Baso % (Auto) 0.6, Absolute Neuts (auto) 4.3, Absolute Lymphs (auto) 1.55, Nucleated RBC % 0 12/25/19 04:58: Hemoglobin A1c 5.6 12/25/19 04:58: Sodium 142, Potassium 3.7, Chloride 109 H, Carbon Dioxide 27.0, Anion Gap 6, BUN 16, Creatinine 0.82, Estim Creat Clear Calc 77.21, Est GFR (MDRD) Af Amer 122, Est GFR (MDRD) Non-Af 101, BUN/Creatinine Ratio 19.5, Glucose 95, Calcium 8.5, Troponin I < 0.015, Triglycerides 128, Cholesterol 179, LDL Cholesterol 110, VLDL Cholesterol 26, HDL Cholesterol 43 12/25/19 08:02: Troponin I < 0.015 Current Medications Acetaminophen (Tylenol) 1,000 mg PO QHS [facility] Aspirin (Aspirin, Baby) 81 mg PO DAILY@0800 [facility] Last Admin: 12/25/19 10:23 Dose: 81 mg Documented by: Atorvastatin Calcium (Lipitor) 80 mg PO QHS [facility] Doxylamine Succinate (Sleep Aid) 12.5 mg PO QHS [facility] Glucagon () 1 mg IM .X1 PRN PRN Reason: Hypoglycemia Dextrose (Dextrose 10%-Water) 250 mls @ 999 mls/hr IV .Q16M PRN; Protocol PRN Reason: HYPOGLYCEMIA Labetalol HCl (Trandate) 10 mg IV Q10M PRN PRN Reason: MAINTAIN BP < 220/120 Stop: 12/26/19 01:24 Ondansetron HCl (Zofran) 4 mg IV Q8H PRN PRN PRN Reason: NAUSEA/VOMITING Pantoprazole Sodium (Protonix) 20 mg PO DAILY [facility] Last Admin: 12/25/19 10:23 Dose: 20 mg Documented by: Pramipexole Dihydrochloride (Mirapex) 0.25 mg PO QHS [facility] Rivaroxaban (Xarelto) 20 mg PO DAILY@0800 [facility] Last Admin: 12/25/19 10:54 Dose: 20 mg Documented by: Sodium Chloride () 10 - 40 ml IV UD PRN PRN Reason: SALINE FLUSH Discharge Diet: No Restrictions Home Medications: Medications to take at Discharge Ropinirole HCl [Requip] 0.5 mg PO QHS 05/20/14 Omeprazole [Prilosec] 20 mg PO DAILY 04/30/15 Rivaroxaban [Xarelto] 20 mg PO DAILY 04/30/15 Acetaminophen [Tylenol] 1,000 mg PO QHS 12/24/19 Ascorbic Acid [Vitamin C] 500 mg PO DAILY 12/24/19 Cholecalciferol (Vitamin D3) [Vitamin D3] 2,000 unit PO DAILY 12/24/19 Gluc Dietrich/Chondro Dietrich A/Vit C/Mn [Glucosamine Chondroitin Tab] 1 ea PO DAILY 12/24/19 Krill Oil 750 mg PO DAILY 12/24/19 L.acidoph,Paracasei, B.lactis [Probiotic] 1 ea PO QHS 12/24/19 Multivit-Mins/Iron/Folic/Lycop [Centrum Men's Tablet] 1 ea PO DAILY 12/24/19 Primary Care Physician: Jimmy Rocha MD [Primary Care Provider] - Within 2 Weeks Please Follow Up With: Neurology When: 1-2 months Disposition: Home Minutes spent on discharge:: 35 Medical Necessity - Tobacco Use Smoking Status: Never smoker Meaningful Use Info Meaningful Use Diagnoses (Choose all that apply): None applicable Code Visit OBSV E&M: 48350 Observation care discharge
--- NOTE | 2019-12-25 16:58 | DCINST_ITS ---
- Discharge Diagnoses Current Active Problems: Current Active and Chronic Problems Protein C deficiency (Chronic) Transient confusion (Acute) You will use the following diet at home:: No restrictions Call your doctor if you observe: - - confusion Allergies/Adverse Reactions: Allergies No Known Allergies Allergy (Verified 12/24/19 19:26) Medications to take at Discharge Ropinirole HCl [Requip] 0.5 mg PO QHS 05/20/14 Omeprazole [Prilosec] 20 mg PO DAILY 04/30/15 Rivaroxaban [Xarelto] 20 mg PO DAILY 04/30/15 Acetaminophen [Tylenol] 1,000 mg PO QHS 12/24/19 Ascorbic Acid [Vitamin C] 500 mg PO DAILY 12/24/19 Cholecalciferol (Vitamin D3) [Vitamin D3] 2,000 unit PO DAILY 12/24/19 Gluc Dietrich/Chondro Dietrich A/Vit C/Mn [Glucosamine Chondroitin Tab] 1 ea PO DAILY 12/24/19 Krill Oil 750 mg PO DAILY 12/24/19 L.acidoph,Paracasei, B.lactis [Probiotic] 1 ea PO QHS 12/24/19 Multivit-Mins/Iron/Folic/Lycop [Centrum Men's Tablet] 1 ea PO DAILY 12/24/19 Primary Care Physician: Jimmy Rocha MD [Primary Care Provider] - Within 2 Weeks Test Results: Test results from this visit will be discussed in further detail at your follow- up appointment, if applicable. Please Follow Up With: Neurology When: 1-2 months Proposed Discharge Date: 12/25/19
== END 2019-12-25 19:43 | disposition home or self-care (01) ==
LOC: ED 23:56 → PCU 12-25 01:14
PROVIDERS: Admitting Provider Hospitalist; Emergency Provider Emergency Medicine; PCP Internal Medicine
DX: G45.4 Transient global amnesia (principal); D68.59 Other primary thrombophilia; Z86.711 Personal history of pulmonary embolism; Z79.01 Long term (current) use of anticoagulants; Z79.899 Other long term (current) drug therapy; G25.81 Restless legs syndrome; I10 Essential (primary) hypertension
CPT/HCPCS: 36415; 70450; 70496; 70498; 70544; 70553; 80048; 80061; 81001; 83036; 84484; 85025; 92610; 93005; 93306; 95819; 96360; 96361; 99218; 99284; A9575; J7030; Q9957; Q9967; A4216; C8929; G0378